=== PATIENT | female | born 1950 | race Caucasian/White ===

== ENCOUNTER 2018-12-07 15:21 | Emergency (ER) | payer MEDICARE, BC ==
[~2018-12-07] VITALS: Ht 170.2 cm; Wt 68.0 kg
[2018-12-07] MEDS ORDERED: RISE150T PO (15:39)
--- NOTE | 2018-12-07 18:05 | NUR ---
Patient discharged to home in stable conditon. Written and verbal after care instructions given. Patient verbalizes understanding of instructions.pt walks in steady gait, no resp distress. pt accompanied by family members.
[2018-12-07 18:07] VITALS: BP 121/79
== END 2018-12-07 18:08 | disposition home or self-care (01) ==
LOC: ER 15:25
DX: S22.42XA Multiple fractures of ribs, left side, initial encounter for closed fracture (principal); S39.91XA Unspecified injury of abdomen, initial encounter; Z90.49 Acquired absence of other specified parts of digestive tract; Z79.899 Other long term (current) drug therapy; W01.198A Fall on same level from slipping, tripping and stumbling with subsequent striking against other object, initial encounter; Y93.89 Activity, other specified; Y92.89 Other specified places as the place of occurrence of the external cause; Y99.8 Other external cause status
CPT/HCPCS: 71250; A4663